=== PATIENT | male | born 1995 | race Caucasian/White ===

== ENCOUNTER 2020-02-03 17:52 | Emergency (ER) | payer SELFPAY ==
--- NOTE | 2020-02-03 19:13 | XR_ITS ---
EXAMINATION: XR CHEST CLINICAL INFORMATION: Right-sided upper posterior chest pain COMPARISON: 04/25/2019 TECHNIQUE: 2 views of the chest were obtained. FINDINGS: No significant abnormality is noted involving the heart, lungs, mediastinum, bony thorax or soft tissues. XR/XR chest 2V IMPRESSION: Unremarkable examination.
[2020-02-03 19:21] VITALS: BP 107/56; PULSE 73; RESP 16; TEMP 37.1; O2SAT 99; BMI 21.4
--- NOTE | 2020-02-03 21:00 | ED.EXTPRO ---
HPI - Extremity Problem General Chief complaint: Extremity Injury, Upper Stated complaint: Arm pain,leg pain Time Seen by Provider: 02/03/20 19:13 Source: patient Mode of arrival: ambulatory Limitations: no limitations History of Present Illness HPI Narrative: States he has been doing reparative movements at work including lifting light weights pallets and couple days ago felt like he pulled his muscle in the right side upper back he was out of work and employer told him to come to emergency room for evaluation and return to work note. MD Complaint: other ( Right upper back) Onset (ago): day(s) Pain Consistency: intermittent Location: right Radiation: none Relieving factors: cold therapy and immobilization Exacerbating factors: range of motion Related Data Previous Rx's Medication Instructions Recorded ibuprofen 800 mg PO Q8H PRN #30 tab 02/03/20 Allergies Allergy/AdvReac Type Severity Reaction Status Date / Time No Known Allergies Allergy Unverified 12/25/19 19:48 [No Known Allergies*] Review of Systems Review of Systems: Constitutional: No Weight loss, No Fever, No Chills, No Night Sweats, No Fatigue, No Malaise ENT/Mouth: No Hearing loss, No Ear Pain, No Nasal Congestion, No Sinus Pain, No Hoarseness, No sore throat, No Rhinorrhea, No Swallowing Difficulty Eyes: No Eye Pain, No Swelling, No Redness, No Foreign Body, No Discharge, No Vision Changes Cardiovascular: No Chest Pain, No SOB, No Dyspnea on Exertion, No Orthopnea, No Edema, No Palpitations Respiratory: No Cough, No Sputum, No Wheezing, No Smoke Exposure, No Dyspnea Gastrointestinal: No Nausea, No Vomiting, No Diarrhea, No Constipation, No abdominal Pain, No Hematochezia, No Melena Genitourinary: no irregular bleeding, No Dysuria, No Urinary Frequency, No Hematuria, No Urinary Incontinence, No Urgency, No Flank Pain, No Urinary Flow Changes, No Hesitancy Musculoskeletal: as noted in HPI Skin: No Skin Lesions, No rash Neuro: No Weakness, No Numbness, No Paresthesias, No Loss of Consciousness, No Dizziness, No Headache Psych: No Anxiety/Panic, No Depression, No SI/HI/AH/VH, No Social Issues Heme/Lymph: No Bruising, No Bleeding,No Lymphadenopathy Endocrine: No Polyuria, No Polydipsia, No Temperature Intolerance Yes all other systems are reviewed and are negative PMFSH Past Medical History Attestation statement: The following information was validated with the patient. Medical History (Updated 02/04/20 @ 00:00 by Background Daemon) No known health problems Social History Social History Smoking Status: Never smoker Use of substances other than those prescribed or required for medical reasons: No Advance Directives: No Advance Directives Information Provided: No Physical Exam Vital Signs: Vital Signs: Vital Signs Temp Pulse Resp BP Pulse Ox 02/03/20 19:21 98.7 F 73 16 107/56 L 99 Body Mass Index 21.4 Reviewed Const: General: cooperative and healthy appearing; No acute distress or intoxicated appearing Nutritional Appearance: average body habitus Orientation/consciousness: patient oriented x3 HENMT: Head: Yes normal to inspection Ears: hearing grossly normal bilaterally Eyes: General: appearance normal, both eyes and all related structures Visual Alvarado: normal visual alvarado by confrontation Neck: Neck: Yes normal visual inspection and No tender Thyroid: Thyroid normal Chest: Chest palpation & inspection: normal inspection of the chest Resp: Effort & Inspection: normal respiratory effort Cardio: Jugular venous distension: no JVD GI: Inspection: Yes normal to inspection Percussion: Yes normal to percussion Auscultation: normal bowel sounds : General: Yes no CVA tenderness Back/Spine/Pelvis: Back: no CVA tenderness Back/spine/pelvis image: 1. Mild soft tissue tender palpation. No induration, ecchymosis, rash. No crepitus. Skin: General skin exam: no rashes or lesions noted Neuro: General: patient oriented x3 Extrem: General: Yes normal to inspection MDM - Extremity (Nontraumatic) Imaging Data Chest x-ray: Radiologist's impression: Tung Hoang X 24 M [address] [address] XRay Report Signed Patient: Tung Hoang XMR#: [id number] : 1995Acct:[id number] Age/Sex: 24 / MADM Date: 02/03/20 Loc: HO.ED Attending Dr: Ordering Physician: José Miguel Samaniego NP Date of Service: 02/03/20 Procedure(s): XR chest 2V Accession Number(s): [id number] cc: José Miguel Samaniego [employer]~ EXAMINATION: XR CHEST CLINICAL INFORMATION: Right-sided upper posterior chest pain COMPARISON: 04/25/2019 TECHNIQUE: 2 views of the chest were obtained. FINDINGS: No significant abnormality is noted involving the heart, lungs, mediastinum, bony thorax or soft tissues. XR/XR chest 2V IMPRESSION: Unremarkable examination. Dictated By:HILL DICKERSON MD Signed By:<Electronically signed by HILL DICKERSON MD in OV>02/03/201926 DD/ 12 TD/TT: Canvas Marker: SS Discharge Plan Discharge Clinical Impression: Muscle strain of right upper back Patient Disposition: Home, Self-Care Instructions: Thoracic Back Strain (ED) Prescriptions: New ibuprofen 800 mg tablet 800 mg PO Q8H PRN (Reason: pain) Qty: 30 RF: 0 Referrals: Physician,None [Primary Care Provider] - 2 days ( Work connection ) Stand Alone Forms: Work/School Release Interventions: ED Discharge Assessment Last Done: 02/03/20 21:08 Discharge Date/Time: 02/03/20 21:09
== END 2020-02-03 21:09 | disposition home or self-care (01) ==
PROVIDERS: Emergency Provider Internal Medicine
DX: S29.012A Strain of muscle and tendon of back wall of thorax, initial encounter (principal); M54.6 Pain in thoracic spine; M94.0 Chondrocostal junction syndrome [Tietze]; X50.0XXA Overexertion from strenuous movement or load, initial encounter; Y93.9 Activity, unspecified; Y92.9 Unspecified place or not applicable; Y99.0 Civilian activity done for income or pay
CPT/HCPCS: 71046; 99283

== ENCOUNTER 2020-08-10 12:17 | Outpatient (REF) | payer OTHER, SELFPAY ==
[2020-08-10 12:50] LABS: COVID-19 Test Negative (Negative); IDNOW Serial# 55D5AD1C
== END 2020-08-10 12:18 | disposition home or self-care (01) ==
LOC: HO.LAB 12:17
PROVIDERS: Visit Provider Internal Medicine
DX: Z20.822 Contact with and (suspected) exposure to COVID-19 (principal)
CPT/HCPCS: 36415; 87635; C9803